=== PATIENT | male | born 1980 | race Caucasian/White ===

== ENCOUNTER 2016-10-18 23:29 | Emergency (ER) | payer SELFPAY ==
[~2016-10-18] VITALS: Ht 182.9 cm; Wt 66.6 kg
[~2016-10-18 23:29] MED LIST: DOXY100T PO; SULF1TAB47 PO
[2016-10-18 23:52] VITALS: BP 99/64; PULSE 80; RESP 18; TEMP 99.5; O2SAT 98
[2016-10-19 00:08] VITALS: BP 122/52; PULSE 80; RESP 18; TEMP 99.5; O2SAT 97
--- NOTE | 2016-10-19 00:57 | PD ---
HPI Chief Complaint: GI Complaint Time Seen by Provider: 00:54 Travel History International Travel<30 days: No Contact w/Intl Traveler<30days: No Traveled to known affect area: No History of Present Illness HPI 36-year-old male presents to the emergency department by private transportation for complaint of one week of sore throat fever and not feeling well. Patient states multiple family members with similar symptoms. Patient reports daughter recently diagnosed with pneumonia. Patient states that he has no chronic medical conditions takes no prescription medications and no previous surgeries. Patient is to smoking cigarettes. Patient is able to identify exacerbating or alleviating factors. [facility] Past Medical History Narrative Medical Negative past history negative surgical history; tobacco use alcohol use: Nursing notes reviewed Medical History: Denies Significant Hx Diminished Hearing: No Tetanus Vaccination: < 5 Years Influenza Vaccination: Yes Past Surgical History Surgical History: No Previous Surgery Social History Alcohol Use: Yes Tobacco Use: Yes Substance Use: No Allergies-Medications (Allergen,Severity, Reaction): Coded Allergies: No Known Allergies (Unverified , 10/19/16) Reported Meds & Prescriptions Reported Meds & Active Scripts Active Zithromax Z-Matt (Azithromycin) 250 Mg Dspk 250 Mg PO DIRECTED 500 MG (2 tabs) day 1, then 1 tab days 2-5. Proventil Hfa 6.7 GM Inh (Albuterol Sulfate) 90 Mcg/Act Aer 2 Puff INH Q4-6H PRN Review of Systems Except as stated in HPI: all other systems reviewed are Neg Physical Exam Narrative GENERAL: Well-developed well-nourished male in acute distress no respiratory distress SKIN: Warm and dry. HEAD: Normocephalic. EYES: No scleral icterus. No injection or drainage. ENT: Mucous members moist airway is patent pharyngeal pillars erythematous without exudate of change NECK: Supple, trachea midline. No JVD or lymphadenopathy. No meningismus no nuchal rigidity CARDIOVASCULAR: Regular rate and rhythm without murmurs, gallops, or rubs. RESPIRATORY: Breath sounds equal bilaterally. No accessory muscle use. GASTROINTESTINAL: Abdomen soft, non-tender, nondistended. MUSCULOSKELETAL: No cyanosis, or edema. BACK: Nontender without obvious deformity. No CVA tenderness. Data Data Last Documented VS Vital Signs Date Time Temp Pulse Resp B/P Pulse Ox O2 Delivery O2 Flow Rate FiO2 10/19/16 03:06 82 18 98 10/19/16 02:39 118/66 Room Air 10/19/16 00:08 99.5 Orders Basic Metabolic Panel (Bmp) (10/19/16 00:54) Complete Blood Count With Diff (10/19/16 00:54) Group A Rapid Strep Screen (10/19/16 00:54) Iv Access Insert/Monitor (10/19/16 00:54) Sodium Chloride 0.9% Flush (Ns Flush) (10/19/16 01:00) Chest, Single Ap (10/19/16 ) Sodium Chlor 0.9% 1000 Ml Inj (Ns 1000 M (10/19/16 01:00) Ketorolac Inj (Toradol Inj) (10/19/16 01:00) Strep Culture (Group A) (10/19/16 01:00) Ceftriaxone Inj (Rocephin Inj) (10/19/16 02:00) Azithromycin (Zithromax) (10/19/16 02:00) Blood Culture (10/19/16 01:56) Labs Laboratory Tests Test 10/19/16 00:25 White Blood Count 9.6 TH/MM3 Red Blood Count 4.75 MIL/MM3 Hemoglobin 13.9 GM/DL Hematocrit 41.0 % Mean Corpuscular Volume 86.2 FL Mean Corpuscular Hemoglobin 29.3 PG Mean Corpuscular Hemoglobin 33.9 % Concent Red Cell Distribution Width 11.8 % Platelet Count 140 TH/MM3 Mean Platelet Volume 9.1 FL Neutrophils (%) (Auto) 82.8 % Lymphocytes (%) (Auto) 10.8 % Monocytes (%) (Auto) 6.2 % Eosinophils (%) (Auto) 0.1 % Basophils (%) (Auto) 0.1 % Neutrophils # (Auto) 8.0 TH/MM3 Lymphocytes # (Auto) 1.0 TH/MM3 Monocytes # (Auto) 0.6 TH/MM3 Eosinophils # (Auto) 0.0 TH/MM3 Basophils # (Auto) 0.0 TH/MM3 CBC Comment DIFF FINAL Differential Comment Sodium Level 137 MEQ/L Potassium Level 3.4 MEQ/L Chloride Level 99 MEQ/L Carbon Dioxide Level 29.4 MEQ/L Anion Gap 9 MEQ/L Blood Urea Nitrogen 13 MG/DL Creatinine 1.10 MG/DL Estimat Glomerular Filtration 75 ML/MIN Rate Random Glucose 146 MG/DL Calcium Level 8.6 MG/DL MDM Medical Decision Making Medical Screen Exam Complete: Yes Emergency Medical Condition: Yes Medical Record Reviewed: Yes Interpretation(s) Last Impressions Chest X-Ray 10/19/16 0000 Signed Impressions: Service Date/Time: Wednesday, October 19, 2016 01:04 - CONCLUSION: Patchy infiltrate right upper lobe could be pneumonia Kelvin Jones MD CBC & BMP Diagram 10/19/16 00:25 Vital Signs Date Time Temp Pulse Resp B/P Pulse Ox O2 Delivery O2 Flow Rate FiO2 10/19/16 00:11 18 10/19/16 00:08 99.5 80 18 122/52 97 10/18/16 23:52 99.5 80 18 99/64 98 Differential Diagnosis Viral syndrome, pharyngitis, bronchitis, pneumonia, dehydration Narrative Course IV access obtained specimens collected and sent for resulting patient administered bolus of normal saline along with Toradol 30 mg IV Patient informed of imaging results consistent with possible early infiltrate right upper lobe for pneumonia. Test is negative other lab values are grossly normal range Patient given first dose of IV antibiotic Rocephin 1 g and oral antibiotic azithromycin 500 mg Patient is stable for outpatient follow-up and follow-up with primary care provider Diagnosis Primary Impression: Pneumonia Qualified Code: J18.1 - Pneumonia of right upper lobe due to infectious organism Referrals: Primary Care Physician 2 days Patient Instructions: General Instructions Departure Forms: Tests/Procedures, Work Release Special Instructions: no work x 3 days Additional Instructions: Increase fluid hydration Complete course of antibiotic as prescribed Take acetaminophen/Tylenol every 4 hours as needed for fever 100.4F or greater Take ibuprofen/Advil/Motrin 600 mg as often as every 6 hours for fever 100.4F or greater Return to the emergency department for any concerns or change in condition Follow-up with primary care provider No work 3 days Med/Other Pt SpecificInfo: Prescription(s) given Scripts Azithromycin (Zithromax Z-Matt)250 Mg [id number] Mg PO DIRECTED #1 DSPK Ref 0 500 MG (2 tabs) day 1, then 1 tab days 2-5. Prov:Kristen Ba MD 10/19/16 Albuterol 6.7 GM Inh (Proventil Hfa 6.7 GM Inh)90 Mcg/Act Aer2 Puff INH Q4-6H PRN (SHORTNESS OF BREATH) #1 INHALER Ref 0 Prov:Kristen Ba MD 10/19/16 Disposition: 01 DISCHARGE HOME Condition: Stable Kristen Ba MD October 19, 2016 00:57
[2016-10-19] MEDS ORDERED: SODIUM CHLOR 0.9% 1000 ML INJ 1,000 ML IV ONE (01:00)
[2016-10-19] MEDS ORDERED: SODIUM CHLORIDE 0.9% FLUSH 10 ML FLUSH IVF PRN (01:00)
[2016-10-19] MEDS ORDERED: KETOROLAC TROMETHAMINE 30 MG/ML (IVP) VIAL IV PUSH ONE (01:00)
[2016-10-19 01:15] LABS: BASOPHIL % 0.1 % (0.0-2.0); EOSINOPHIL % 0.1 % (0.0-4.0); HEMO FLAGS DIFF FINAL; LYMPH % 10.8 % (9.0-44.0); MEAN CELL VOLUME 86.2 FL (80.0-100.0); MEAN CORPUSCULAR HEMOGLOBIN 29.3 PG (27.0-34.0); MEAN CORPUSCULAR HGB CONC 33.9 % (32.0-36.0); MONO % 6.2 % (0.0-8.0); NEUT % 82.8 % (16.0-70.0); PLATELET COUNT 140 TH/MM3 (150-450); RED BLOOD COUNT 4.75 MIL/MM3 (4.50-5.90); RED CELL DISTRIBUTION WIDTH 11.8 % (11.6-17.2); WHITE BLOOD COUNT 9.6 TH/MM3 (4.0-11.0)
--- NOTE | 2016-10-19 01:18 | RADHPO ---
EXAM DATE/TIME: 10/19/2016 01:04 [place] COMPARISON: No previous studies available for comparison. INDICATIONS : Cough, fever, flu-like symptoms for 3 days MEDICAL HISTORY : None. SURGICAL HISTORY : None. ENCOUNTER: Initial ACUITY: 3 days PAIN SCORE: 0/10 LOCATION: Bilateral chest FINDINGS: A single view of the chest demonstrates small patchy infiltrate right upper lobe possible pneumonia. The cardiomediastinal contours are unremarkable. Osseous structures are intact. CONCLUSION: Patchy infiltrate right upper lobe could be pneumonia Kelvin Jones MD on October 19, 2016 at 1:16 Board Certified Radiologist. This report was verified electronically.
[2016-10-19 01:23] LABS: POTASSIUM 3.4 MEQ/L (3.5-5.1)
[2016-10-19 01:27] LABS: BICARBONATE 29.4 MEQ/L (21.0-32.0)
[2016-10-19] MEDS ORDERED: ALBU6.7H INH (01:57)
[2016-10-19] MEDS ORDERED: ZITHTAB PO (01:57)
[2016-10-19] MEDS ORDERED: cefTRIAXone INJ 1,000 MG in SODIUM CHLORIDE 0.9% INJ 100 ML IV ONE (02:00)
[2016-10-19] MEDS ORDERED: AZITHROMYCIN 250 MG TAB PO ONE (02:00)
[2016-10-19 02:39] VITALS: BP 118/66; PULSE 82; RESP 18; O2SAT 98
== END 2016-10-19 03:09 | disposition home or self-care (01) ==
LOC: PHED 23:29
DX: J18.1 Lobar pneumonia, unspecified organism (principal); F17.210 Nicotine dependence, cigarettes, uncomplicated
CPT/HCPCS: 71010; 80048; 85025; 87040; 87081; 87880; 96361; 96365; 96375; 99284; J0696; J1885; J7030